=== PATIENT | male | born 1950 | race Caucasian/White ===

== ENCOUNTER → 2016-12-13 | Outpatient (CLI) | payer BC ==
--- NOTE | 2016-12-14 20:42 | RAD ---
Procedure: XR HAND 3 OR MORE VIEWS Exam Date: 12/13/2016 10:32 AM CDT Ordering Provider: FRANK ROSALES MD Clinical Indication: PAIN IN LEFT HAND Comparison: None Findings: There is no fracture or dislocation. Articular surfaces of the hand and visualized wrist are normal. There are no lytic or sclerotic lesions. There is no radiopaque foreign body. There is no subcutaneous gas. Impression: Negative exam of the left hand. Electronically signed by: Nile Stone MD 12/14/2016 8:40 PM CDT
== END | disposition home or self-care (01) ==
LOC: RAD 10:24
PROVIDERS: ATTEND Orthopaedic Surgery
DX: M79.642 Pain in left hand (principal)